=== PATIENT | female | born 1965 | race Caucasian/White ===

== ENCOUNTER 2016-11-14 06:41 | Emergency (ER) | payer OTHER ==
--- NOTE | 2016-11-14 17:07 | ER ---
ADMIT: 11/14/2016 RM/LOC: ER [facility] MR#: [id number] [place], [place] [address] ADAMES CARLITOS L [address] [place], [place] [id number] Emergency Room Report SEX: F AGE: 51 : 1965 DATE: 11/14/2016 ADDENDUM: A 51-year-old white female, coming in with abdominal wall pain. She is concerned that her Lap Band port is either broken, malfunctioning, or infected. CBC, chemistry, lactate, all negative. We did a CT scan of her belly, radiologist read it out as maybe a little bit of fluid around there. Dr. Bender also looked at it as he is surgeon on-call. At this time, he as well did not think there was anything there. There is no sign of infection at this time, whatsoever. She did have a uterine ablation and bladder sling put in on Thursday. She had no sign of infection at that time. I think this has been a recurrent chronic problem. I gave her 30 of Toradol IV before she left and wrote her for Motrin 800 q.6 times on a p.r.n. basis. She is supposed to see Dr. Amor up in [place] at the first available appointment. CONDITION ON DISCHARGE: Fair. Ferny Rae MD/ modl JOB #: [id number] CC: Graeme Melara MD, Attending Physician UNKNOWN, Family Physician MD Maxime Yanez MD
== END 2016-11-14 11:09 | disposition home or self-care (01) ==
LOC: ER 06:41
DX: R10.84 Generalized abdominal pain (principal); E11.9 Type 2 diabetes mellitus without complications; Z88.2 Allergy status to sulfonamides; Z88.8 Allergy status to other drugs, medicaments and biological substances; Z79.4 Long term (current) use of insulin; Z79.899 Other long term (current) drug therapy

== ENCOUNTER 2017-01-13 11:35 | Emergency (ER) | payer OTHER ==
--- NOTE | 2017-02-01 15:51 | ER ---
ADMIT: 01/13/2017 RM/LOC: ER [facility] MR#: [id number] [facility] [address] [place], [place] [address] CARLITOS ADAMES [address] [place], [place] [address] Emergency Room Report SEX: F AGE: 51 : 1965 DATE: 01/13/2017 ADDENDUM: This patient comes to the ER because she states she is weak and tired and she knows that she needs to have some fluids. She recently has had issues with the lap band, and when she feels like this it is because she is not keeping enough fluids down. She does not really complain of abdominal pain. No vomiting or diarrhea. On physical exam, this is an obese, 51-year- old, white female. Her abdomen is soft. Oral mucosa is dry. We did give her a liter bolus, which she felt much improved from. She was discharged and she is to follow up with her primary as needed. Please see my T-sheet. ROBIN Victor / Oskar Diaz MD / burakl JOB #: [id number] CC: Oskar Diaz MD, Attending Physician Jayme Cerda MD, Family Physician
== END 2017-01-13 14:10 | disposition home or self-care (01) ==
LOC: ER 11:35
DX: R53.83 Other fatigue (principal); E11.9 Type 2 diabetes mellitus without complications; I10 Essential (primary) hypertension; Z88.2 Allergy status to sulfonamides; Z88.5 Allergy status to narcotic agent; Z79.4 Long term (current) use of insulin; Z79.899 Other long term (current) drug therapy